=== PATIENT | female | born 1965 | race Caucasian/White ===

== ENCOUNTER 2025-07-18 12:36 | Emergency (ER) | payer BC ==
[2025-07-18] MEDS ORDERED: HYDROcodone/Acetaminophen 5/325 mg Tablet ONE (13:42)
== END 2025-07-18 14:25 | disposition home or self-care (01) ==
LOC: ERS 12:36
DX: M25.561 Pain in right knee (principal); W01.0XXA Fall on same level from slipping, tripping and stumbling without subsequent striking against object, initial encounter; Y92.481 Parking lot as the place of occurrence of the external cause
CPT/HCPCS: 99283